=== PATIENT | female | born 1970 | race Caucasian/White ===

== ENCOUNTER 2018-02-03 14:11 | Outpatient (CLI) | payer BC | END 2018-02-03 14:12 | disposition home or self-care (01) | LOC: BICULT 14:11 | PROVIDERS: ATTEND Family Medicine | DX: E04.1 Nontoxic single thyroid nodule (principal) | CPT/HCPCS: 76536 ==

== ENCOUNTER 2019-01-29 07:46 | Outpatient (CLI) | payer BC ==
--- NOTE | 2019-01-29 09:05 | ULT ---
THYROID ULTRASOUND: DATE: 01/29/2019. PROVIDED CLINICAL HISTORY: Followup thyroid cyst. FINDINGS: Comparison is made with the study dated 02/03/2018. The right thyroid lobe measures about 4.1 x 1.4 x 1.1 cm and demonstrates a 7 mm circumscribed smooth ly marginated anechoic focus that is wider than tall at the inferior pole of the right thyroid lobe. This appears not significantly changed with respect to the prior examination. A single echogenic fo cus is noted at the posterior margin of this structure. An additional 2-3 mm focus of diminished ech ogenicity is seen involving the right thyroid lobe. The left thyroid lobe measures about 4.4 x 1.3 x 0.9 cm and demonstrates a circumscribed 2 mm focus o f diminished echogenicity. No concerning nodule is evident. IMPRESSION: Stable exam. TIRADS category 2, not suspicious. POS: [facility]
== END 2019-01-29 07:47 | disposition home or self-care (01) ==
LOC: SCSULT 07:46
PROVIDERS: ATTEND Family Medicine
DX: E04.1 Nontoxic single thyroid nodule (principal)
CPT/HCPCS: 76536